=== PATIENT | female | born 1940 | race Asian ===

== ENCOUNTER → 2016-12-10 | Outpatient (CLI) | payer OTHER | END | disposition home or self-care (01) | LOC: RADPV 08:18 | PROVIDERS: ATTEND Internal Medicine Cardiovascular Disease | DX: I08.3 Combined rheumatic disorders of mitral, aortic and tricuspid valves (principal) | CPT/HCPCS: 93306 ==

== ENCOUNTER 2022-06-19 14:45 | Emergency (ER) | payer MEDICARE, OTHER ==
[~2022-06-19] VITALS: Ht 152.4 cm; Wt 64.5 kg
[2022-06-19] MEDS ORDERED: FOLI1CAP16 PO (15:06)
[2022-06-19] MEDS ORDERED: MIRT-92 PO (15:06)
[2022-06-19] MEDS ORDERED: MIDO5TAB5 PO (15:06)
[2022-06-19] MEDS ORDERED: INSU100I15 SQ (15:06)
[2022-06-19] MEDS ORDERED: CHOL100062 PO (15:06)
[2022-06-19] MEDS ORDERED: B CO1CAP6 PO (15:06)
[2022-06-19] MEDS ORDERED: ASPI-1444 PO (15:06)
[2022-06-19] MEDS ORDERED: ISOS60TA77 PO (15:06)
[2022-06-19] MEDS ORDERED: MULT-1336 PO (15:06)
[2022-06-19] MEDS ORDERED: AMLO-143 PO (15:06)
[2022-06-19] MEDS ORDERED: SEVE800T17 PO (15:06)
[2022-06-19] MEDS ORDERED: PRIM50TA3 PO (15:06)
[2022-06-19] MEDS ORDERED: PREG25CA18 PO (15:06)
[2022-06-19] MEDS ORDERED: METO25 PO (15:06)
[2022-06-19] MEDS ORDERED: PANT20TA18 PO (15:06)
[2022-06-19] MEDS ORDERED: AMAN100C15 PO (15:06)
[2022-06-19] MEDS ORDERED: ROSU40 PO (15:06)
[2022-06-19 15:25] LABS: BASOPHILS % (AUTO) 0.2 % (0.0-2.0); EOSINOPHILS % (AUTO) 1.6 % (1.0-6.0); HEMATOCRIT 43.6 % (36-46); HEMOGLOBIN 13.9 g/dL (12.0-16.0); LYMPHOCYTES # (AUTO) 1.1 K/uL (1.0-4.8); LYMPHOCYTES % (AUTO) 21.7 % (22.0-44.0); MEAN CORPUSCULAR HEMOGLOBIN 29.3 pg (26.0-34.0); MEAN CORPUSCULAR HGB CONC 31.9 G/dL (31.0-37.0); MEAN CORPUSCULAR VOLUME 92 fL (80-100); MONOCYTES # (AUTO) 0.5 K/uL (0.1-1.0); NEUTROPHILS # (AUTO) 3.4 K/uL (1.8-7.7); NEUTROPHILS % (AUTO) 67.5 % (40.0-70.0); PLATELET COUNT (AUTO) 126 K/uL (150-450); RED BLOOD CELL COUNT(AUTO) 4.76 MIL/uL (4.00-5.20); RED CELL DISTRIBUTION WIDTH 16.8 % (11.5-14.5)
[2022-06-19 15:48] LABS: COVID AG,FIA SOURCE NASOPHARYNGEAL
[2022-06-19 15:54] LABS: CREATININE 4.87 mg/dL (0.60-1.30); POTASSIUM 3.7 mmol/L (3.5-5.1)
[2022-06-19 15:58] LABS: ALBUMIN 4.3 g/dL (3.4-5.0); BILIRUBIN,TOTAL 0.4 mg/dL (0.1-1.0); MAGNESIUM 1.9 mg/dL (1.80-2.40); PHOSPHORUS 1.9 mg/dL (2.5-4.9); TOTAL PROTEIN, SERUM 8.9 g/dL (6.4-8.2)
[2022-06-19 16:53] LABS: INFLUENZA TYPE A NEGATIVE FOR TYPE A (NEGATIVE); INFLUENZA TYPE B NEGATIVE FOR TYPE B (NEGATIVE)
[2022-06-19 19:45] VITALS: BP 132/69
== END 2022-06-19 20:41 | disposition home or self-care (01) ==
LOC: EMS 14:48
DX: R55 Syncope and collapse (principal); R77.8 Other specified abnormalities of plasma proteins; E11.22 Type 2 diabetes mellitus with diabetic chronic kidney disease; I12.0 Hypertensive chronic kidney disease with stage 5 chronic kidney disease or end stage renal disease; N18.6 End stage renal disease; E78.00 Pure hypercholesterolemia, unspecified; E11.40 Type 2 diabetes mellitus with diabetic neuropathy, unspecified; Z99.2 Dependence on renal dialysis; Z98.890 Other specified postprocedural states; Z20.822 Contact with and (suspected) exposure to COVID-19
CPT/HCPCS: 71045; 80053; 82550; 82962; 83735; 83880; 84100; 84484; 85025; 87804; 93005; 99285; 36415-L1; 36415-TC